=== PATIENT | female | born 1950 | race Caucasian/White ===

== ENCOUNTER 2019-01-30 05:39 | Inpatient (IN) ==
[2019-01-23 12:58] LABS: Basophils # 0.1 10*3/uL (0.0-0.2); Basophils % 0.7 % (0.0-0.8); Eosinophils # 0.1 10*3/uL (0.0-0.87); Eosinophils % 1.6 % (0.00-10.9); Hematocrit 44.8 VOL% (35.7-47.0); Hemoglobin 14.7 GM/DL (12.0-16.0); Immature Granulocytes % 0.8 %; Immature Granulocytes Absolute 0.07 #; Lymphocytes # 2.9 10*3/uL (1.4-4.0); Lymphocytes % 34.8 % (21.3-54.2); Mean Corpuscular HGB Conc 32.8 GM/DL (32-36); Mean Corpuscular Volume 86.5 FL (87-102); Mean Platelet Volume 9.8 FL (9.6-12.0); Monocytes % 6.5 % (1.7-12.7); Neutrophils % 55.6 % (38.7-73.9); Platelet Count 310 T/CUMM (130-400); Red Blood Count 5.18 MC/CUMM (3.8-5.5); White Blood Count 8.4 T/CUMM (4-12)
[2019-01-23 13:17] LABS: Calcium 9.2 MG/DL (8.5-10.1); Osmolality,Calculated 280.1 MOS/KG (273-304)
[2019-01-30] MEDS ORDERED: ACETAMINOPHEN 500 MG TABLET PO ONE (06:00)
[2019-01-30] MEDS ORDERED: ALVIMOPAN 12 MG CAPSULE PO ONE (06:00)
[2019-01-30] MEDS ORDERED: FAMOTIDINE 20 MG TABLET PO ONE (06:00)
[2019-01-30] MEDS ORDERED: cefOXitin 1,000 MG in SYRINGE 1 EACH IV ONE (06:00)
[2019-01-30] MEDS: LACTATED RINGERS 1,000 ML IV SCH ×2 (06:19→07:51)
[2019-01-30] MEDS ORDERED: BUPIVACAINE 0.25% /EPI 10 ML VIAL ONE (06:35)
[2019-01-30] MEDS ORDERED: INDOCYANINE GREEN 25 MG VIAL IV ONE (06:35)
[2019-01-30] MEDS ORDERED: LIDOCAINE 1% 20 ML VIAL ONE (06:35)
[2019-01-30] MEDS ORDERED: FAMOTIDINE 20 MG TABLET ONE (06:39)
[2019-01-30] MEDS ORDERED: ALVIMOPAN 12 MG CAPSULE ONE (06:39)
[2019-01-30] MEDS ORDERED: ACETAMINOPHEN 500 MG TABLET ONE (06:39)
[2019-01-30] MEDS ORDERED: ALBUMIN 5% 12.5 GM/250 ML VIAL IV ONE (06:42)
[2019-01-30] MEDS ORDERED: METHYLENE BLUE 10 ML VIAL IV ONE (08:18)
[2019-01-30] MEDS ORDERED: BUPIVACAINE 0.5% 50 ML VIAL ONE (09:00)
[2019-01-30] MEDS ORDERED: EPINEPHrine 1 MG/ML VIAL ONE (09:01)
[2019-01-30] MEDS ORDERED: DEXAMETHASONE 4 MG/1 ML VIAL ONE (09:01)
[2019-01-30] MEDS ORDERED: TISSUE ADHESIVE 1 EACH APPLICATOR TOP ONE (09:20)
[2019-01-30] MEDS ORDERED: HYDROmorphone 2 MG/1 ML VIAL IV PRN (11:15)
[2019-01-30 11:34] LABS: Apearance,Urine CLEAR (Clear); Bilirubin,Urine Negative (Negative); Blood, Urine Negative (Negative); Glucose,Urine (UA) Negative (Negative); Ketones,Urine Negative (Negative); Nitrite,Urine Negative (Negative); Protein,Urine Negative; RBC,Urine <1 /HPF (0-4); Urine Color Straw (Yellow); Urine Specific Gravity 1.002 (1.001-1.035); Urine Urobilinogen < 2.0 EU/DL (0.2-1.0)
[2019-01-30] MEDS: DEXTROSE 5% LACTATED RINGERS 1,000 ML IV SCH ×2 (11:35→20:31)
[2019-01-30] MEDS ORDERED: LIDOCAINE 2% 5 ML VIAL ONE (11:36)
[2019-01-30] MEDS ORDERED: PROPOFOL 200 MG/20 ML VIAL IV ONE (11:36)
[2019-01-30] MEDS ORDERED: HYDROmorphone 2 MG/1 ML VIAL ONE ×2 (11:37→12:08)
[2019-01-30] MEDS ORDERED: ONDANSETRON 4 MG/2 ML VIAL ONE ×2 (11:37→12:08)
[2019-01-30] MEDS ORDERED: KETAMINE 500 MG/10 ML VIAL ONE (11:37)
[2019-01-30] MEDS ORDERED: SUCCINYLCHOLINE 200 MG/10 ML VIAL ONE (11:37)
[2019-01-30] MEDS ORDERED: GLYCOPYRROLATE 0.4 MG/2 ML VIAL ONE (11:37)
[2019-01-30] MEDS ORDERED: MIDAZOLAM 2 MG/2 ML VIAL ONE (11:37)
[2019-01-30] MEDS ORDERED: LACTATED RINGERS 2,000 ML IV ONE (11:38)
[2019-01-30] MEDS ORDERED: ROCURONIUM 100 MG/10 ML VIAL IV ONE (11:38)
[2019-01-30] MEDS ORDERED: NEOSTIGMINE 10 MG/10 ML VIAL ONE (11:38)
[2019-01-30] MEDS ORDERED: SEVOFLURANE 1 UNIT/15 MINUTE INH ONE (11:38)
[2019-01-30 11:51] LABS: Hematocrit 42.4 VOL% (35.7-47.0); Hemoglobin 13.7 GM/DL (12.0-16.0)
[2019-01-30] MEDS ORDERED: ONDANSETRON 4 MG/2 ML VIAL IV PRN (12:07)
[2019-01-30] MEDS: HYDROmorphone 2 MG/1 ML VIAL IV PRN ×3 (12:11→12:25)
[2019-01-30] MEDS: ONDANSETRON 4 MG/2 ML VIAL IV PRN ×2 (12:11→17:47)
[2019-01-30] MEDS: cefOXitin 2,000 MG in SYRINGE 1 EACH IV SCH ×2 (15:19→20:55)
[2019-01-30 19:56] LABS: Hematocrit 39.4 VOL% (35.7-47.0); Hemoglobin 12.7 GM/DL (12.0-16.0)
[2019-01-31] MEDS: DEXTROSE 5% LACTATED RINGERS 1,000 ML IV SCH ×2 (04:43→21:09)
[2019-01-31] MEDS: cefOXitin 2,000 MG in SYRINGE 1 EACH IV SCH (04:43)
[2019-01-31 05:55] LABS: Basophils % 0.1 % (0.0-0.8); Hemoglobin 12.1 GM/DL (12.0-16.0); Immature Granulocytes % 0.4 %; Immature Granulocytes Absolute 0.06 #; Lymphocytes # 1.2 10*3/uL (1.4-4.0); Lymphocytes % 8.4 % (21.3-54.2); Mean Corpuscular HGB Conc 31.8 GM/DL (32-36); Mean Corpuscular Volume 87.8 FL (87-102); Mean Platelet Volume 10.4 FL (9.6-12.0); Monocytes % 5.7 % (1.7-12.7); Neutrophils % 85.4 % (38.7-73.9); Platelet Count 253 T/CUMM (130-400); Red Blood Count 4.33 MC/CUMM (3.8-5.5); Red Cell Distribution Width 12.2 % (9.3-17.3); White Blood Count 14.1 T/CUMM (4-12)
[2019-01-31 06:10] LABS: Calcium 8.5 MG/DL (8.5-10.1)
[2019-01-31] MEDS ORDERED: SIMETHICONE CHEW 125 MG TABLET PO PRN (08:31)
[2019-01-31] MEDS: PANTOPRAZOLE 40 MG TABLET PO SCH (08:45)
[2019-01-31] MEDS: ROSUVASTATIN 20 MG TABLET PO SCH (09:46)
[2019-01-31] MEDS: CETIRIZINE 10 MG TABLET PO SCH (09:46)
[2019-02-01] MEDS: CETIRIZINE 10 MG TABLET PO SCH (08:49)
[2019-02-01] MEDS: ROSUVASTATIN 20 MG TABLET PO SCH (08:49)
[2019-02-01] MEDS: PANTOPRAZOLE 40 MG TABLET PO SCH (08:49)
[2019-02-01] MEDS: ONDANSETRON 4 MG/2 ML VIAL IV PRN (18:31)
[2019-02-02 05:12] LABS: Basophils % 0.3 % (0.0-0.8); Eosinophils # 0.1 10*3/uL (0.0-0.87); Eosinophils % 0.7 % (0.00-10.9); Hematocrit 41.1 VOL% (35.7-47.0); Hemoglobin 13.1 GM/DL (12.0-16.0); Immature Granulocytes % 0.4 %; Immature Granulocytes Absolute 0.04 #; Lymphocytes # 3.6 10*3/uL (1.4-4.0); Lymphocytes % 36.9 % (21.3-54.2); Mean Corpuscular HGB Conc 31.9 GM/DL (32-36); Mean Corpuscular Volume 87.8 FL (87-102); Mean Platelet Volume 10.3 FL (9.6-12.0); Monocytes % 6.3 % (1.7-12.7); Neutrophils % 55.4 % (38.7-73.9); Platelet Count 272 T/CUMM (130-400); Red Blood Count 4.68 MC/CUMM (3.8-5.5); Red Cell Distribution Width 12.3 % (9.3-17.3); White Blood Count 9.6 T/CUMM (4-12)
[2019-02-02] MEDS: ROSUVASTATIN 20 MG TABLET PO SCH (09:52)
[2019-02-02] MEDS: PANTOPRAZOLE 40 MG TABLET PO SCH (09:52)
[2019-02-02] MEDS: CETIRIZINE 10 MG TABLET PO SCH (09:52)
[2019-02-03] MEDS: ROSUVASTATIN 20 MG TABLET PO SCH (09:33)
[2019-02-03] MEDS: CETIRIZINE 10 MG TABLET PO SCH (09:33)
[2019-02-03] MEDS: PANTOPRAZOLE 40 MG TABLET PO SCH (09:33)
[2019-02-03] MEDS ORDERED: SODIUM CHLORIDE 0.9% 500 ML IV ONE (11:14)
[2019-02-03 12:07] LABS: Apearance,Urine CLEAR (Clear); Bilirubin,Urine Negative (Negative); Blood, Urine Moderate mg/dL (Negative); Glucose,Urine (UA) Negative (Negative); Ketones,Urine Negative (Negative); Mucus,Urine Occasional /LPF (Occasional); Nitrite,Urine Negative (Negative); Protein,Urine Negative; RBC,Urine 5 /HPF (0-4); Urine Color Yellow (Yellow); Urine Specific Gravity 1.006 (1.001-1.035); Urine Urobilinogen < 2.0 EU/DL (0.2-1.0); WBC,Urine 1 /HPF (0-6)
[2019-02-03 12:48] VITALS: BP 122/42
== END 2019-02-03 16:00 | disposition home or self-care (01) | DRG 330 ==
LOC: N.OR 05:39 → N.SDSINP 05:40 → N.3E 14:02
PROVIDERS: ADMIT Surgery; ATTEND Surgery